=== PATIENT | female | born 1930 | race Caucasian/White ===

== ENCOUNTER → 2016-05-24 | Outpatient (CLI) | payer MEDICARE ==
[~2016-05-24] MED LIST: AMLODIPINE5 MG PO; B COMPLEX1 TA3 PO; BISOPROLOL FUMAR5 MG PO; CALCIUM200 MG PO; DARVOCET N 1001 TAB PO; HYDRODIURIL25 MG PO; LISINOPRIL10 MG PO; LOVASTATIN20 MG PO; LUTEIN20 MG PO; MULTI VITAMINS1 TAB PO; OMEPRAZOLE20 MG PO; POTASSIUM25 MEQ PO; SYNTHROID,LEVO50 MCG PO; TROSPIUM CHLORI60 MG PO; TYLENOL W/CODEI1 TA2 PO; VICO10300 PO; VITAMIN C500 M4 PO; VITAMIN D400 IU PO
[2016-05-24 08:35] LABS: BASO % 0.6 % (0.0-1.0); EOS # 0.2 10*3/uL (0.0-0.4); EOS % 2.5 % (1.0-4.0); HEMATOCRIT 38.1 % (37.0-47.0); HEMOGLOBIN 11.9 g/dl (12.0-16.0); LYMPH # 2.1 10*3/uL (1.3-4.4); LYMPH % 30.5 % (27.0-41.0); MEAN CELL VOLUME 87.2 fl (81.0-99.0); MEAN CORPUSCULAR HGB 27.2 pg (27.0-31.0); MEAN CORPUSCULAR HGB CONC 31.2 g/dl (33.0-37.0); MONO # 0.7 10*3/uL (0.1-1.0); MONO % 10.2 % (3.0-9.0); NEUT # 3.8 10*3/uL (2.3-7.9); NEUT % 55.9 % (47.0-73.0); PLATELET COUNT AUTOMATED 375 10*3/uL (130-400); RED BLOOD COUNT 4.37 10*6/uL (4.10-5.10); RED CELL DISTRI WIDTH 13.8 % (0-14.5); WHITE BLOOD COUNT 6.8 10*3/uL (4.8-10.8)
[2016-05-24 09:11] LABS: ALBUMIN 3.5 gm/dl (3.1-4.5); BILIRUBIN, DIRECT 0.1 mg/dL (0.0-0.2); BILIRUBIN, TOTAL 0.5 mg/dl (0.2-1.0); POTASSIUM 4.1 mmol/L (3.5-5.1); TOTAL PROTEIN 7.1 gm/dL (6.4-8.2)
[2016-05-24 09:20] LABS: THYROID STIM HORMONE (HS) 1.88 uIU/ml (0.358-4.75); THYROXINE (T4) TOTAL 11.9 ug/dl (4.8-13.9)
== END | disposition home or self-care (01) ==
LOC: LAB 08:03
PROVIDERS: Internal Medicine
DX: I10 Essential (primary) hypertension (principal); E78.5 Hyperlipidemia, unspecified; F41.9 Anxiety disorder, unspecified

== ENCOUNTER 2016-06-01 12:20 | Inpatient (IN) | payer MEDICARE ==
[~2016-06-01] VITALS: Ht 162.5 cm; Wt 70.1 kg
[2016-06-01 12:42] VITALS: BP 170/67
[2016-06-01 13:26] LABS: BASO % 0.1 % (0.0-1.0); EOS % 0.1 % (1.0-4.0); HEMATOCRIT 36.1 % (37.0-47.0); HEMOGLOBIN 11.6 g/dl (12.0-16.0); LYMPH # 1.2 10*3/uL (1.3-4.4); LYMPH % 15.8 % (27.0-41.0); MEAN CELL VOLUME 84.5 fl (81.0-99.0); MEAN CORPUSCULAR HGB 27.2 pg (27.0-31.0); MEAN CORPUSCULAR HGB CONC 32.1 g/dl (33.0-37.0); MEAN PLATELET VOLUME 8.8 fl (9.6-12.3); MONO # 0.7 10*3/uL (0.1-1.0); MONO % 8.4 % (3.0-9.0); NEUT # 5.9 10*3/uL (2.3-7.9); NEUT % 75.5 % (47.0-73.0); PLATELET COUNT AUTOMATED 297 10*3/uL (130-400); RED BLOOD COUNT 4.27 10*6/uL (4.10-5.10); RED CELL DISTRI WIDTH 13.7 % (0-14.5); WHITE BLOOD COUNT 7.9 10*3/uL (4.8-10.8)
[2016-06-01 13:37] LABS: BILIRUBIN NEGATIVE (NEGATIVE); BLOOD NEGATIVE (NEGATIVE); CLARITY SL CLOUDY (CLEAR); COLOR YELLOW (YELLOW); GLUCOSE NEGATIVE (NEGATIVE); KETONE TRACE (NEGATIVE); LEUKO ESTERASE 1+ (NEGATIVE); NITRITE NEGATIVE (NEGATIVE); PH 7.5 (5.0-9.0); PROTEIN NEGATIVE (NEGATIVE); UROBILINOGEN 0.2 E.U./dl (0.2-1.0)
[2016-06-01 13:48] LABS: ALBUMIN 3.4 gm/dl (3.1-4.5); ALKALINE PHOSPHATASE 57 U/L (45-117); BILIRUBIN, TOTAL 0.3 mg/dl (0.2-1.0); BUN 17 mg/dl (7-24); CARBON DIOXIDE 30 mmol/L (21-32); CHLORIDE 100 mmol/L (98-107); EST GLOM FILT AFRICAN AMERICAN > 60 ml/min; GLUCOSE 106 mg/dL (65-99); POTASSIUM 4.2 mmol/L (3.5-5.1); SGOT/AST 20 IU/L (3-35); SGPT/ALT 17 U/L (12-78); SODIUM 140 mmol/L (136-145); TOTAL PROTEIN 7.1 gm/dL (6.4-8.2)
[2016-06-01 13:51] LABS: TROPONIN I < 0.015 ng/ml (<0.045)
[2016-06-01 13:53] LABS: BACTERIA 2+; URINE REFLEX COMMENT YES (NO)
[2016-06-01] MEDS ORDERED: TROSPIUM CHLORI60 M1 PO (14:15)
[2016-06-01 14:48] VITALS: BP 171/90
[2016-06-01] MEDS ORDERED: CELEXA10 MG PO (17:02)
[2016-06-01 20:00] VITALS: BP 126/59
[2016-06-02] VITALS: BP 123/51
[2016-06-02 06:23] LABS: BASO % 0.4 % (0.0-1.0); EOS # 0.1 10*3/uL (0.0-0.4); EOS % 1.3 % (1.0-4.0); HEMATOCRIT 33.7 % (37.0-47.0); HEMOGLOBIN 10.9 g/dl (12.0-16.0); LYMPH # 1.5 10*3/uL (1.3-4.4); LYMPH % 19.5 % (27.0-41.0); MEAN CELL VOLUME 85.3 fl (81.0-99.0); MEAN CORPUSCULAR HGB 27.6 pg (27.0-31.0); MEAN CORPUSCULAR HGB CONC 32.3 g/dl (33.0-37.0); MEAN PLATELET VOLUME 9.2 fl (9.6-12.3); MONO # 0.8 10*3/uL (0.1-1.0); MONO % 10.1 % (3.0-9.0); NEUT # 5.2 10*3/uL (2.3-7.9); NEUT % 68.3 % (47.0-73.0); PLATELET COUNT AUTOMATED 294 10*3/uL (130-400); RED BLOOD COUNT 3.95 10*6/uL (4.10-5.10); RED CELL DISTRI WIDTH 13.5 % (0-14.5); WHITE BLOOD COUNT 7.6 10*3/uL (4.8-10.8)
[2016-06-02 06:30] LABS: BUN 15 mg/dl (7-24); CARBON DIOXIDE 28 mmol/L (21-32); CHLORIDE 99 mmol/L (98-107); CHOLESTEROL 144 mg/dL (<200); EST GLOM FILT AFRICAN AMERICAN > 60 ml/min; GLUCOSE 95 mg/dL (65-99); HDL CHOLESTEROL 108 mg/dl (40-60); HEMOGLOBIN A1c 5.2 % (4.8-5.6); LDL CHOLESTEROL 27 mg/dL (9-159); PHOSPHOROUS 2.9 mg/dL (2.5-4.9); POTASSIUM 3.3 mmol/L (3.5-5.1); SODIUM 138 mmol/L (136-145); TRIGLYCERIDES 47 mg/dl (<150); VLDL CHOLESTEROL 9 mg/dL (6-40)
[2016-06-02 06:31] LABS: FREE T4 1.24 ng/dl (0.76-1.46)
[2016-06-02 07:32] LABS: VITAMIN D, 25-HYDROXY 33.6 ng/mL (30-100)
[2016-06-02 07:41] LABS: FOLIC ACID > 24.00 ng/mL (>5.38)
[2016-06-02 08:00] VITALS: BP 132/59
[2016-06-02 12:00] VITALS: BP 136/69
[2016-06-02 16:00] VITALS: BP 124/60
[2016-06-02 20:00] VITALS: BP 130/64
[2016-06-03] VITALS: BP 138/73
[2016-06-03 06:13] LABS: BASO % 0.2 % (0.0-1.0); EOS # 0.1 10*3/uL (0.0-0.4); EOS % 0.9 % (1.0-4.0); HEMATOCRIT 38.3 % (37.0-47.0); HEMOGLOBIN 12.2 g/dl (12.0-16.0); LYMPH # 1.9 10*3/uL (1.3-4.4); LYMPH % 20.8 % (27.0-41.0); MEAN CELL VOLUME 83.4 fl (81.0-99.0); MEAN CORPUSCULAR HGB 26.6 pg (27.0-31.0); MEAN CORPUSCULAR HGB CONC 31.9 g/dl (33.0-37.0); MEAN PLATELET VOLUME 9.2 fl (9.6-12.3); MONO # 0.8 10*3/uL (0.1-1.0); MONO % 8.5 % (3.0-9.0); NEUT # 6.4 10*3/uL (2.3-7.9); NEUT % 69.3 % (47.0-73.0); PLATELET COUNT AUTOMATED 345 10*3/uL (130-400); RED BLOOD COUNT 4.59 10*6/uL (4.10-5.10); RED CELL DISTRI WIDTH 13.3 % (0-14.5); WHITE BLOOD COUNT 9.3 10*3/uL (4.8-10.8)
[2016-06-03 06:26] LABS: BUN 10 mg/dl (7-24); CARBON DIOXIDE 32 mmol/L (21-32); CHLORIDE 94 mmol/L (98-107); EST GLOM FILT AFRICAN AMERICAN > 60 ml/min; GLUCOSE 115 mg/dL (65-99); POTASSIUM 3.3 mmol/L (3.5-5.1); SODIUM 133 mmol/L (136-145)
[2016-06-03 08:00] VITALS: BP 151/70
[2016-06-03 12:00] VITALS: BP 138/80
[2016-06-03] MEDS ORDERED: ZOFRAN ODT4 MG SL (13:44)
[2016-06-03] MEDS ORDERED: CIPRO500 MG PO (13:50)
== END 2016-06-03 14:30 | disposition home or self-care (01) | DRG 690 ==
LOC: ED 12:20 → 5E 16:02
PROVIDERS: Emergency Medicine; Internal Medicine; Internal Medicine Hospice and Palliative Medicine
DX: N39.0 Urinary tract infection, site not specified (principal); R06.00 Dyspnea, unspecified; E55.9 Vitamin D deficiency, unspecified; D64.9 Anemia, unspecified; E03.9 Hypothyroidism, unspecified; K21.9 Gastro-esophageal reflux disease without esophagitis; E87.6 Hypokalemia; Z90.710 Acquired absence of both cervix and uterus; Z82.49 Family history of ischemic heart disease and other diseases of the circulatory system; Z80.9 Family history of malignant neoplasm, unspecified; Z79.899 Other long term (current) drug therapy

== ENCOUNTER 2016-06-05 16:04 | Inpatient (IN) | payer MEDICARE ==
[~2016-06-05] VITALS: Ht 162.5 cm; Wt 66.0 kg
--- NOTE | ~2016-06-05 | EKG ---
[place], [place] ELECTROCARDIOGRAM REPORT NAME: JOSE CHADWICK UNIT #: [id number] ROOM: [facility] DOCTOR: BENITO BAIG MD BIRTHDATE: [birth year] DOS: 06/05/2016 TIME: 1647 hours. FINDINGS: 1. Normal sinus rhythm. 2. Normal electrocardiogram. BENITO BAIG MD CM:EKGRPT:ELECTROCARDIOGRAM REPORT [id number] BENITO BAIG MD
--- NOTE | ~2016-06-05 | PR ---
[place], [place] PROGRESS NOTE NAME: JOSE CHADWICK [facility] #: [id number] UNIT #: [id number] ROOM: 525 DOCTOR: AMIRA CONNELLY DO BIRTHDATE: [birth year] DOS: 06/07/2016 SUBJECTIVE: The patient was seen and evaluated on 06/07/2016. At this time, she has no new complaints. Overall, she is feeling better. Her nausea has resolved. She denies chest pain or shortness of breath. She still feels generally fatigued. No other new complaints. OBJECTIVE: VITAL SIGNS: Temperature is 97.7, pulse 66, respirations 18, blood pressure 138/63, pulse ox 96%. GENERAL: The patient is alert and oriented x 3, no acute distress. LUNGS: Clear to auscultation bilaterally. HEART: Regular rate and rhythm. ABDOMEN: Soft, nontender, nondistended. EXTREMITIES: No edema. ASSESSMENT: 1. Hyponatremia. 2. Nausea and vomiting, this has nearly resolved. 3. Abdominal pain. 4. Leukocytosis on admission, this has resolved. 5. T12 compression fracture seen on CT. 6. Hypertension. 7. Hypothyroidism. 8. Gastroesophageal reflux disease. PLAN: Continue current medications. Nephrology is following on the case for the hyponatremia. Physical Therapy has evaluated the patient. The patient will most likely need rehab upon discharge, this is being set up by the [facility]. Repeat labs in the morning. AMIRA CONNELLY DO CM:PNTRANS [id number] AMIRA CONNELLY DO 06/07/16 1401 interface
--- NOTE | ~2016-06-05 | PR ---
[place], [place] PROGRESS NOTE NAME: JOSE CHADWICK UNIT #: [id number] ROOM: 525 DOCTOR: CHERELLE MILLERJUANY Wahl BIRTHDATE: [birth year] DOS: 06/11/2016 SUBJECTIVE: The patient was seen and evaluated. She is ambulating to and from the bathroom with aide assistance, but doing fairly well on around. No nausea, no vomiting reported. She has no abdominal pain reported. Continues on PPI for her large ulcer and her diet was gently advanced to a soft diet. I believe from a cold liquid diet seems to be tolerating this well. She is going to be starting her breakfast soon. OBJECTIVE: VITAL SIGNS: 98.2, 74, 20, 132/64, 96%. GENERAL: She is awake, alert, oriented, pleasant mood and affect. Speech is clear and cogent. LUNGS: Clear. CARDIOVASCULAR: Rate regular. No audible rub. ABDOMEN: Soft, nontender. No rebound, no guarding. EXTREMITIES: Periphery without cyanosis, clubbing or significant edema, poor skin turgor secondary to age mostly. No other diffuse rashes noted. LABORATORY DATA AND DIAGNOSTICS: White blood cell count 8.2, hemoglobin 11.2, platelets 328. Sodium 134, potassium 3.4, chloride 92, bicarb 33, glucose 87, calcium 8.5, phosphorus 2.8, albumin 2.8. ASSESSMENT AND PLAN: Hyponatremia overall improved from 124, combination of solid depletion and mild inappropriate ADH. Continue moderate fluid intake, but this is difficult because of the soft diet and the nature of her acute ulcer but nausea and vomiting have seem to seize an intake seems to be improving. Continue to increase protein intake as tolerated and moderate fluid intake, her sodium levels are stable. Continue sodium tablets while she is inpatient, hopefully she will not need to continue this at discharge, hypokalemia today again will be replaced again not quite as severe as it has been in previous days, but she has good amount of potassium on a tray as well as one dose of 40 mEq KCl will be given. Mild hypophosphatemia has been improving with replacement. Continue on that for now as well. Creatinine is stable. Mild anemia is also stable. [place], [place] PROGRESS NOTE NAME: JOSE CHADWICK UNIT #: [id number] ROOM: [facility] DOCTOR: JUANY VILLARREAL MD BIRTHDATE: [birth year] JUANY VILLARREAL MD CM:PNEARNEST [id number] JUANY VILLARREAL MD 06/12/16 0115 interface
--- NOTE | ~2016-06-05 | PR ---
[place], [place] PROGRESS NOTE NAME: JOSE CHADWICK [facility] #: [id number] UNIT #: [id number] ROOM: 525 DOCTOR: URI WOODS MD BIRTHDATE: [birth year] DOS: 06/12/2016 NEPHROLOGY FOLLOWUP NOTE SUBJECTIVE: The patient was seen and examined. She is awake and alert. She denies shortness of breath. She denies nausea or vomiting. She just feels weak, but I think she is getting a little bit stronger. No events were noted. OBJECTIVE: VITAL SIGNS: Temperature 98.1, pulse 59, respiratory rate 20, blood pressure 111/66. HEENT: Shows no JVD. LUNGS: Clear, no crackles. HEART: Normal S1, S2. No rub, thrill or gallop. ABDOMEN: Soft, nontender. There is no organomegaly. EXTREMITIES: Showed no edema. SKIN: Show no rash. LABORATORY DATA: Reviewed. BUN 10, creatinine 0.69, glucose 79, sodium 135, potassium 3.6, CO2 of 33, calcium is 8.4. ASSESSMENT AND PLAN: 1. Hyponatremia, which has resolved. The etiology seems multifactorial. Continue ongoing supportive care. Increase protein in her diet. The patient is on sodium chloride tablets. Can continue this for now. I am not clear if this will be needed ongoing indefinitely. 2. Hypertension. Continue medications. 3. Hypothyroidism. The patient is on levothyroxine. 4. Metabolic alkalosis. I am not clear if this is a chronic issue. We will continue to follow trends and possible further workup potentially if warranted. RUI WOODS MD CM:PNTRANS [id number] RUI WOODS MD 06/13/16 0849 interface
[~2016-06-05 16:04] MED LIST changes: +CELEXA10 MG PO; +CIPRO500 MG PO; +TROSPIUM CHLORI60 M1 PO; +ZOFRAN ODT4 MG SL
[2016-06-05 16:07] VITALS: BP 129/54
[2016-06-05 16:39] LABS: BASO % 0.1 % (0.0-1.0); EOS # 0.1 10*3/uL (0.0-0.4); EOS % 0.5 % (1.0-4.0); HEMATOCRIT 35.3 % (37.0-47.0); HEMOGLOBIN 12.1 g/dl (12.0-16.0); IG # 0.1 10*3/uL (0.0-0.1); LYMPH # 0.7 10*3/uL (1.3-4.4); LYMPH % 5.3 % (27.0-41.0); MEAN CORPUSCULAR HGB 27.1 pg (27.0-31.0); MEAN CORPUSCULAR HGB CONC 34.3 g/dl (33.0-37.0); MEAN PLATELET VOLUME 8.4 fl (9.6-12.3); MONO # 0.9 10*3/uL (0.1-1.0); MONO % 6.9 % (3.0-9.0); NEUT # 11.2 10*3/uL (2.3-7.9); NEUT % 86.8 % (47.0-73.0); PLATELET COUNT AUTOMATED 292 10*3/uL (130-400); RED BLOOD COUNT 4.47 10*6/uL (4.10-5.10); RED CELL DISTRI WIDTH 13.1 % (0-14.5)
[2016-06-05 17:48] LABS: ALBUMIN 3.3 gm/dl (3.1-4.5); ALKALINE PHOSPHATASE 59 U/L (45-117); BILIRUBIN, TOTAL 0.5 mg/dl (0.2-1.0); BUN 18 mg/dl (7-24); CARBON DIOXIDE 30 mmol/L (21-32); CHLORIDE 79 mmol/L (98-107); EST GLOM FILT AFRICAN AMERICAN > 60 ml/min; GLUCOSE 102 mg/dL (65-99); MAGNESIUM 1.9 mg/dL (1.5-2.1); POTASSIUM 4.1 mmol/L (3.5-5.1); SGOT/AST 24 IU/L (3-35); SGPT/ALT 21 U/L (12-78); SODIUM 124 mmol/L (136-145); TOTAL PROTEIN 6.6 gm/dL (6.4-8.2)
[2016-06-05 17:50] LABS: TROPONIN I < 0.015 ng/ml (<0.045)
[2016-06-05 19:12] LABS: BILIRUBIN NEGATIVE (NEGATIVE); BLOOD NEGATIVE (NEGATIVE); CLARITY CLEAR (CLEAR); COLOR YELLOW (YELLOW); GLUCOSE NEGATIVE (NEGATIVE); KETONE NEGATIVE (NEGATIVE); LEUKO ESTERASE NEGATIVE (NEGATIVE); NITRITE NEGATIVE (NEGATIVE); PH 5.5 (5.0-9.0); PROTEIN NEGATIVE (NEGATIVE); SPECIFIC GRAVITY <= 1.005 (1.005-1.030); UROBILINOGEN 0.2 E.U./dl (0.2-1.0)
[2016-06-05 19:23] LABS: RBC 0-2 rbc/hpf (0-2); URINE REFLEX COMMENT NO (NO); WBC 0-2 wbc/hpf (0-5)
[2016-06-05 19:28] VITALS: BP 120/59
[2016-06-05 20:00] VITALS: BP 145/66
[2016-06-06 00:28] VITALS: BP 125/62
[2016-06-06 00:36] LABS: CKMB 2.7 ng/ml (0.5-3.6); CPK 82 U/L (26-192)
[2016-06-06 00:38] LABS: TROPONIN I < 0.015 ng/ml (<0.045)
[2016-06-06 02:04] LABS: URINE TP/CRE RATIO 0.3 (<0.21)
[2016-06-06 06:30] LABS: BASO % 0.1 % (0.0-1.0); EOS % 0.2 % (1.0-4.0); HEMATOCRIT 33.7 % (37.0-47.0); HEMOGLOBIN 11.5 g/dl (12.0-16.0); LYMPH # 0.7 10*3/uL (1.3-4.4); LYMPH % 7.3 % (27.0-41.0); MEAN CELL VOLUME 79.5 fl (81.0-99.0); MEAN CORPUSCULAR HGB 27.1 pg (27.0-31.0); MEAN CORPUSCULAR HGB CONC 34.1 g/dl (33.0-37.0); MEAN PLATELET VOLUME 8.5 fl (9.6-12.3); MONO # 0.9 10*3/uL (0.1-1.0); MONO % 9.4 % (3.0-9.0); NEUT # 7.5 10*3/uL (2.3-7.9); NEUT % 82.6 % (47.0-73.0); PLATELET COUNT AUTOMATED 254 10*3/uL (130-400); RED BLOOD COUNT 4.24 10*6/uL (4.10-5.10); WHITE BLOOD COUNT 9.1 10*3/uL (4.8-10.8)
[2016-06-06 06:40] LABS: CKMB 2.3 ng/ml (0.5-3.6); CPK 67 U/L (26-192); TROPONIN I < 0.015 ng/ml (<0.045)
[2016-06-06 07:00] LABS: HEMOGLOBIN A1c 5.3 % (4.8-5.6)
[2016-06-06 07:07] LABS: ALBUMIN 3.1 gm/dl (3.1-4.5); ALKALINE PHOSPHATASE 57 U/L (45-117); BILIRUBIN, TOTAL 0.6 mg/dl (0.2-1.0); BUN 10 mg/dl (7-24); CARBON DIOXIDE 30 mmol/L (21-32); CHLORIDE 83 mmol/L (98-107); CHOLESTEROL 161 mg/dL (<200); EST GLOM FILT AFRICAN AMERICAN > 60 ml/min; FREE T4 1.65 ng/dl (0.76-1.46); GLUCOSE 93 mg/dL (65-99); HDL CHOLESTEROL 127 mg/dl (40-60); LDL CHOLESTEROL 23 mg/dL (9-159); MAGNESIUM 1.9 mg/dL (1.5-2.1); PHOSPHOROUS 2.4 mg/dL (2.5-4.9); SGOT/AST 19 IU/L (3-35); SGPT/ALT 18 U/L (12-78); TOTAL PROTEIN 6.1 gm/dL (6.4-8.2); TRIGLYCERIDES 56 mg/dl (<150); VLDL CHOLESTEROL 11 mg/dL (6-40)
[2016-06-06 07:12] LABS: PROTHROMBIN TIME 10.2 SECONDS (9.0-12.4); THYROID STIM HORMONE (HS) 0.632 uIU/ml (0.358-4.75)
[2016-06-06 07:21] LABS: SODIUM 124 mmol/L (136-145)
[2016-06-06 07:23] LABS: POTASSIUM 2.8 mmol/L (3.5-5.1)
[2016-06-06 07:31] LABS: VITAMIN D, 25-HYDROXY 33.1 ng/mL (30-100)
[2016-06-06 07:59] LABS: FOLIC ACID > 24.00 ng/mL (>5.38)
[2016-06-06 08:00] VITALS: BP 137/62
[2016-06-06 12:00] VITALS: BP 131/71
[2016-06-06 12:44] LABS: CPK 67 U/L (26-192)
[2016-06-06 12:45] LABS: CKMB 2.1 ng/ml (0.5-3.6)
[2016-06-06 12:46] LABS: TROPONIN I < 0.015 ng/ml (<0.045)
[2016-06-06 16:00] VITALS: BP 139/68
[2016-06-06 20:32] VITALS: BP 131/62
[2016-06-07 00:24] VITALS: BP 128/56
[2016-06-07 06:09] LABS: BASO % 0.1 % (0.0-1.0); EOS # 0.1 10*3/uL (0.0-0.4); EOS % 1.5 % (1.0-4.0); HEMOGLOBIN 11.9 g/dl (12.0-16.0); LYMPH # 1.1 10*3/uL (1.3-4.4); LYMPH % 12.7 % (27.0-41.0); MEAN CELL VOLUME 79.7 fl (81.0-99.0); MEAN CORPUSCULAR HGB 27.1 pg (27.0-31.0); MEAN PLATELET VOLUME 8.8 fl (9.6-12.3); MONO # 1.2 10*3/uL (0.1-1.0); MONO % 13.9 % (3.0-9.0); NEUT # 6.3 10*3/uL (2.3-7.9); NEUT % 71.5 % (47.0-73.0); PLATELET COUNT AUTOMATED 315 10*3/uL (130-400); RED BLOOD COUNT 4.39 10*6/uL (4.10-5.10); RED CELL DISTRI WIDTH 13.2 % (0-14.5); WHITE BLOOD COUNT 8.8 10*3/uL (4.8-10.8)
[2016-06-07 06:43] LABS: BUN 9 mg/dl (7-24); CARBON DIOXIDE 33 mmol/L (21-32); CHLORIDE 85 mmol/L (98-107); EST GLOM FILT AFRICAN AMERICAN > 60 ml/min; GLUCOSE 88 mg/dL (65-99); PHOSPHOROUS 2.3 mg/dL (2.5-4.9); SODIUM 127 mmol/L (136-145)
[2016-06-07 08:00] VITALS: BP 138/63
[2016-06-07 16:00] VITALS: BP 156/84
[2016-06-08] VITALS (9 sets, daily range): BP systolic 118–150; BP diastolic 54–82
[2016-06-08 06:30] LABS: BASO % 0.1 % (0.0-1.0); EOS % 0.2 % (1.0-4.0); HEMATOCRIT 32.9 % (37.0-47.0); HEMOGLOBIN 11.1 g/dl (12.0-16.0); LYMPH # 0.8 10*3/uL (1.3-4.4); LYMPH % 10.3 % (27.0-41.0); MEAN CELL VOLUME 80.8 fl (81.0-99.0); MEAN CORPUSCULAR HGB 27.3 pg (27.0-31.0); MEAN CORPUSCULAR HGB CONC 33.7 g/dl (33.0-37.0); MEAN PLATELET VOLUME 8.7 fl (9.6-12.3); MONO # 1.1 10*3/uL (0.1-1.0); MONO % 13.4 % (3.0-9.0); NEUT # 6.2 10*3/uL (2.3-7.9); NEUT % 75.6 % (47.0-73.0); PLATELET COUNT AUTOMATED 298 10*3/uL (130-400); RED BLOOD COUNT 4.07 10*6/uL (4.10-5.10); RED CELL DISTRI WIDTH 13.2 % (0-14.5); WHITE BLOOD COUNT 8.2 10*3/uL (4.8-10.8)
[2016-06-08 07:07] LABS: ALBUMIN 2.9 gm/dl (3.1-4.5); ALKALINE PHOSPHATASE 57 U/L (45-117); BILIRUBIN, TOTAL 0.5 mg/dl (0.2-1.0); BUN 8 mg/dl (7-24); CARBON DIOXIDE 34 mmol/L (21-32); CHLORIDE 88 mmol/L (98-107); EST GLOM FILT AFRICAN AMERICAN > 60 ml/min; GLUCOSE 87 mg/dL (65-99); MAGNESIUM 1.8 mg/dL (1.5-2.1); PHOSPHOROUS 2.1 mg/dL (2.5-4.9); SGOT/AST 19 IU/L (3-35); SGPT/ALT 18 U/L (12-78); SODIUM 131 mmol/L (136-145)
[2016-06-08 07:11] LABS: IRON 29 ug/dL (50-170); IRON SATURATION 9 %; UIBC 285 ug/dL (110-365)
[2016-06-09] VITALS (7 sets, daily range): BP systolic 108–143; BP diastolic 57–94
[2016-06-09 06:45] LABS: BASO % 0.1 % (0.0-1.0); EOS # 0.1 10*3/uL (0.0-0.4); EOS % 0.6 % (1.0-4.0); HEMATOCRIT 34.2 % (37.0-47.0); HEMOGLOBIN 11.4 g/dl (12.0-16.0); LYMPH # 1.4 10*3/uL (1.3-4.4); LYMPH % 15.3 % (27.0-41.0); MEAN CELL VOLUME 81.4 fl (81.0-99.0); MEAN CORPUSCULAR HGB 27.1 pg (27.0-31.0); MEAN CORPUSCULAR HGB CONC 33.3 g/dl (33.0-37.0); MEAN PLATELET VOLUME 8.5 fl (9.6-12.3); MONO # 1.1 10*3/uL (0.1-1.0); MONO % 12.9 % (3.0-9.0); NEUT # 6.2 10*3/uL (2.3-7.9); NEUT % 70.8 % (47.0-73.0); PLATELET COUNT AUTOMATED 309 10*3/uL (130-400); RED CELL DISTRI WIDTH 13.2 % (0-14.5); WHITE BLOOD COUNT 8.8 10*3/uL (4.8-10.8)
[2016-06-09 07:14] LABS: BUN 7 mg/dl (7-24); CARBON DIOXIDE 33 mmol/L (21-32); CHLORIDE 89 mmol/L (98-107); EST GLOM FILT AFRICAN AMERICAN > 60 ml/min; GLUCOSE 95 mg/dL (65-99); PHOSPHOROUS 2.4 mg/dL (2.5-4.9); POTASSIUM 3.4 mmol/L (3.5-5.1); SODIUM 130 mmol/L (136-145)
[2016-06-10] VITALS: BP 131/68
[2016-06-10 07:05] LABS: BASO % 0.2 % (0.0-1.0); EOS # 0.2 10*3/uL (0.0-0.4); EOS % 2.1 % (1.0-4.0); HEMATOCRIT 35.7 % (37.0-47.0); HEMOGLOBIN 11.6 g/dl (12.0-16.0); LYMPH # 1.5 10*3/uL (1.3-4.4); LYMPH % 17.8 % (27.0-41.0); MEAN CELL VOLUME 82.6 fl (81.0-99.0); MEAN CORPUSCULAR HGB 26.9 pg (27.0-31.0); MEAN CORPUSCULAR HGB CONC 32.5 g/dl (33.0-37.0); MEAN PLATELET VOLUME 8.6 fl (9.6-12.3); MONO # 1.1 10*3/uL (0.1-1.0); MONO % 12.4 % (3.0-9.0); NEUT # 5.7 10*3/uL (2.3-7.9); NEUT % 67.1 % (47.0-73.0); PLATELET COUNT AUTOMATED 337 10*3/uL (130-400); RED BLOOD COUNT 4.32 10*6/uL (4.10-5.10); RED CELL DISTRI WIDTH 13.2 % (0-14.5); WHITE BLOOD COUNT 8.5 10*3/uL (4.8-10.8)
[2016-06-10 07:11] LABS: ALBUMIN 2.9 gm/dl (3.1-4.5); BUN 9 mg/dl (7-24); CARBON DIOXIDE 36 mmol/L (21-32); CHLORIDE 93 mmol/L (98-107); EST GLOM FILT AFRICAN AMERICAN > 60 ml/min; GLUCOSE 93 mg/dL (65-99); MAGNESIUM 2.2 mg/dL (1.5-2.1); PHOSPHOROUS 2.8 mg/dL (2.5-4.9); POTASSIUM 3.9 mmol/L (3.5-5.1); SODIUM 135 mmol/L (136-145)
[2016-06-10 08:00] VITALS: BP 154/76
[2016-06-10 12:00] VITALS: BP 118/58
[2016-06-10 16:00] VITALS: BP 122/53
[2016-06-10 20:00] VITALS: BP 123/51
[2016-06-11] VITALS: BP 149/74
[2016-06-11 06:21] LABS: BASO % 0.4 % (0.0-1.0); EOS # 0.1 10*3/uL (0.0-0.4); EOS % 1.7 % (1.0-4.0); HEMATOCRIT 34.8 % (37.0-47.0); HEMOGLOBIN 11.2 g/dl (12.0-16.0); LYMPH # 1.7 10*3/uL (1.3-4.4); LYMPH % 20.6 % (27.0-41.0); MEAN CELL VOLUME 83.1 fl (81.0-99.0); MEAN CORPUSCULAR HGB 26.7 pg (27.0-31.0); MEAN CORPUSCULAR HGB CONC 32.2 g/dl (33.0-37.0); MEAN PLATELET VOLUME 8.5 fl (9.6-12.3); MONO # 0.9 10*3/uL (0.1-1.0); NEUT # 5.4 10*3/uL (2.3-7.9); NEUT % 65.9 % (47.0-73.0); PLATELET COUNT AUTOMATED 328 10*3/uL (130-400); RED BLOOD COUNT 4.19 10*6/uL (4.10-5.10); RED CELL DISTRI WIDTH 13.3 % (0-14.5); WHITE BLOOD COUNT 8.2 10*3/uL (4.8-10.8)
[2016-06-11 06:52] LABS: ALBUMIN 2.8 gm/dl (3.1-4.5); BUN 10 mg/dl (7-24); CARBON DIOXIDE 33 mmol/L (21-32); CHLORIDE 92 mmol/L (98-107); EST GLOM FILT AFRICAN AMERICAN > 60 ml/min; GLUCOSE 87 mg/dL (65-99); PHOSPHOROUS 2.8 mg/dL (2.5-4.9); POTASSIUM 3.4 mmol/L (3.5-5.1); SODIUM 134 mmol/L (136-145)
[2016-06-11 08:00] VITALS: BP 132/64
[2016-06-11 12:00] VITALS: BP 142/89
[2016-06-11 16:00] VITALS: BP 127/61
[2016-06-11 20:00] VITALS: BP 124/70
[2016-06-12] VITALS: BP 120/65
[2016-06-12 06:43] LABS: BUN 10 mg/dl (7-24); CARBON DIOXIDE 33 mmol/L (21-32); CHLORIDE 95 mmol/L (98-107); GLUCOSE 79 mg/dL (65-99); POTASSIUM 3.6 mmol/L (3.5-5.1); SODIUM 135 mmol/L (136-145)
[2016-06-12 06:45] LABS: EST GLOM FILT AFRICAN AMERICAN > 60 ml/min
[2016-06-12 08:00] VITALS: BP 143/68
[2016-06-12 12:00] VITALS: BP 111/66
[2016-06-12 16:00] VITALS: BP 109/58
[2016-06-12 20:00] VITALS: BP 134/63
[2016-06-13] VITALS: BP 120/54
[2016-06-13 07:31] LABS: BUN 12 mg/dl (7-24); CARBON DIOXIDE 33 mmol/L (21-32); CHLORIDE 97 mmol/L (98-107); GLUCOSE 87 mg/dL (65-99); POTASSIUM 4.5 mmol/L (3.5-5.1); SODIUM 135 mmol/L (136-145)
[2016-06-13 07:32] LABS: EST GLOM FILT AFRICAN AMERICAN > 60 ml/min
[2016-06-13 08:00] VITALS: BP 124/66
[2016-06-13 12:00] VITALS: BP 150/58
[2016-06-13 16:00] VITALS: BP 116/60
[2016-06-13 20:00] VITALS: BP 120/53
[2016-06-14] VITALS: BP 128/60
[2016-06-14 07:03] LABS: BASO % 0.5 % (0.0-1.0); EOS # 0.2 10*3/uL (0.0-0.4); EOS % 3.6 % (1.0-4.0); HEMATOCRIT 33.4 % (37.0-47.0); HEMOGLOBIN 10.6 g/dl (12.0-16.0); LYMPH # 1.6 10*3/uL (1.3-4.4); LYMPH % 25.2 % (27.0-41.0); MEAN CELL VOLUME 85.4 fl (81.0-99.0); MEAN CORPUSCULAR HGB 27.1 pg (27.0-31.0); MEAN CORPUSCULAR HGB CONC 31.7 g/dl (33.0-37.0); MEAN PLATELET VOLUME 8.3 fl (9.6-12.3); MONO # 0.7 10*3/uL (0.1-1.0); MONO % 10.7 % (3.0-9.0); NEUT # 3.9 10*3/uL (2.3-7.9); NEUT % 59.7 % (47.0-73.0); PLATELET COUNT AUTOMATED 293 10*3/uL (130-400); RED BLOOD COUNT 3.91 10*6/uL (4.10-5.10); RED CELL DISTRI WIDTH 13.3 % (0-14.5); WHITE BLOOD COUNT 6.4 10*3/uL (4.8-10.8)
[2016-06-14 07:25] LABS: ALBUMIN 2.7 gm/dl (3.1-4.5); BUN 12 mg/dl (7-24); CARBON DIOXIDE 33 mmol/L (21-32); CHLORIDE 100 mmol/L (98-107); EST GLOM FILT AFRICAN AMERICAN > 60 ml/min; GLUCOSE 85 mg/dL (65-99); MAGNESIUM 2.1 mg/dL (1.5-2.1); PHOSPHOROUS 3.4 mg/dL (2.5-4.9); POTASSIUM 4.2 mmol/L (3.5-5.1); SODIUM 140 mmol/L (136-145)
[2016-06-14 08:00] VITALS: BP 146/58
[2016-06-14] MEDS ORDERED: PANTOPRAZOLE SO40 MG PO (09:51)
[2016-06-14] MEDS ORDERED: Carafate1 GM/10 ML PO (09:51)
[2016-06-14 12:00] VITALS: BP 117/58
== END 2016-06-14 13:46 | disposition other institution (70) | DRG 377 ==
LOC: ED 16:04 → 5E 18:53 → EDHOLD 18:53 → 5E 19:08
PROVIDERS: Emergency Medicine; Hospitalist; Internal Medicine; Internal Medicine Gastroenterology; Internal Medicine Hospice and Palliative Medicine; Internal Medicine Nephrology; Student in an Organized Health Care Education/Training Program
PROC: 0DB68ZZ Excision of Stomach, Via Natural or Artificial Opening Endoscopic (ICD-10-PCS; principal; 2016-06-08)
DX: K25.0 Acute gastric ulcer with hemorrhage (principal); E43 Unspecified severe protein-calorie malnutrition; D64.9 Anemia, unspecified; E87.3 Alkalosis; E87.1 Hypo-osmolality and hyponatremia; K52.9 Noninfective gastroenteritis and colitis, unspecified; K31.7 Polyp of stomach and duodenum; K44.9 Diaphragmatic hernia without obstruction or gangrene; E87.6 Hypokalemia; E83.39 Other disorders of phosphorus metabolism; K21.9 Gastro-esophageal reflux disease without esophagitis; D72.829 Elevated white blood cell count, unspecified; E03.9 Hypothyroidism, unspecified; E55.9 Vitamin D deficiency, unspecified; E83.41 Hypermagnesemia; Z90.710 Acquired absence of both cervix and uterus; Z82.49 Family history of ischemic heart disease and other diseases of the circulatory system; Z80.6 Family history of leukemia; Z79.899 Other long term (current) drug therapy; Z68.26 Body mass index [BMI] 26.0-26.9, adult

== ENCOUNTER → 2017-01-30 | Outpatient (CLI) | payer MEDICARE ==
[~2017-01-30] MED LIST changes: +Carafate1 GM/10 ML PO; +PANTOPRAZOLE SO40 MG PO
== END | disposition home or self-care (01) ==
LOC: US 13:46
DX: M79.661 Pain in right lower leg (principal)

== ENCOUNTER → 2017-04-13 | Outpatient (CLI) | payer MEDICARE | END | disposition home or self-care (01) | LOC: RAD 09:09 | DX: M25.561 Pain in right knee (principal); M79.89 Other specified soft tissue disorders ==

== ENCOUNTER → 2017-08-03 | Outpatient (CLI) | payer MEDICARE ==
[2017-08-03 08:53] LABS: BASO % 0.3 % (0.0-1.0); EOS # 0.1 10*3/uL (0.0-0.4); EOS % 2.1 % (1.0-4.0); HEMATOCRIT 43.7 % (37.0-47.0); HEMOGLOBIN 13.5 g/dl (12.0-16.0); LYMPH # 1.4 10*3/uL (1.3-4.4); LYMPH % 22.5 % (27.0-41.0); MEAN CELL VOLUME 88.1 fl (81.0-99.0); MEAN CORPUSCULAR HGB 27.2 pg (27.0-31.0); MEAN CORPUSCULAR HGB CONC 30.9 g/dl (33.0-37.0); MEAN PLATELET VOLUME 8.8 fl (9.6-12.3); MONO # 0.5 10*3/uL (0.1-1.0); MONO % 7.3 % (3.0-9.0); NEUT # 4.3 10*3/uL (2.3-7.9); NEUT % 67.6 % (47.0-73.0); PLATELET COUNT AUTOMATED 280 10*3/uL (130-400); RED BLOOD COUNT 4.96 10*6/uL (4.10-5.10); RED CELL DISTRI WIDTH 13.5 % (0-14.5); WHITE BLOOD COUNT 6.3 10*3/uL (4.8-10.8)
[2017-08-03 09:24] LABS: ALBUMIN 3.6 gm/dl (3.1-4.5); BILIRUBIN, DIRECT 0.2 mg/dL (0.0-0.2); BUN 24 mg/dl (7-24); CHLORIDE 104 mmol/L (98-107); CREATININE 0.76 mg/dL (0.55-1.02); PHOSPHOROUS 3.4 mg/dL (2.5-4.9); SGOT/AST 14 IU/L (3-35); SGPT/ALT 19 U/L (12-78); SODIUM 140 mmol/L (136-145); TOTAL PROTEIN 7.5 gm/dL (6.4-8.2)
[2017-08-03 09:32] LABS: ALKALINE PHOSPHATASE 97 U/L (45-117); THYROXINE (T4) TOTAL 10.5 ug/dl (4.8-13.9)
== END | disposition home or self-care (01) ==
LOC: LAB 08:33
PROVIDERS: Internal Medicine
DX: I10 Essential (primary) hypertension (principal); E03.1 Congenital hypothyroidism without goiter; D51.9 Vitamin B12 deficiency anemia, unspecified